=== PATIENT | male | born 1985 | race African-American/Black ===

== ENCOUNTER 2018-01-10 02:30 | Emergency (ER) | payer BC ==
[2018-01-10 02:45] VITALS: BP 117/70; PULSE 57; TEMP 98.8; BMI 24.4
[2018-01-10] MEDS ORDERED: ACETAMINOPHEN 500 MG TABLET (FP) PO ONE (02:49)
[2018-01-10] MEDS ORDERED: ACETAMINOPHEN 325 MG TABLET (FP) ONE (02:51)
--- NOTE | 2018-01-10 03:00 | PDOC ---
History of Present Illness - General Chief Complaint: Pain, Acute Stated Complaint: PAIN,RT LEG Time Seen by Provider: 01/10/18 02:37 History Source: Patient Exam Limitations: No Limitations - History of Present Illness Initial Comments: 01/10/18 02:55 32 yo male no significant pmh presents to the ED with sudden onset pain in the right knee. Pt states the pain started suddenly and woke him up out of sleep at 1 am. Does admit to playing basketball yesterday but denies any trauma or painful event. States he is unable to weight bare or bend his knee due to pain. Pt is with only 1 sexual partner for years and denies hx of STDs. Denies heavy consumption of red meat, alcohol and denies drug use. Admits to numbness but no weakness distal to the right knee. Denies recent illness, F/C/N/ V, CP, SOB or abdominal pain. Past History - Past Medical History Allergies/Adverse Reactions: Allergies Allergy/AdvReac Type Severity Reaction Status Date / Time No Known Allergies Allergy Verified 01/10/18 02:53 Home Medications: Ambulatory Orders NK [No Known Home Medication] 01/10/18 - Suicide/Smoking/Psychosocial Hx Smoking History: Never smoked Have you smoked in the past 12 months: No Information on smoking cessation initiated: No Hx Alcohol Use: No Drug/Substance Use Hx: No *Physical Exam - Vital Signs Last Vital Signs Temp Pulse Resp BP Pulse Ox 98.8 F 57 L 18 117/70 100 01/10/18 02:34 01/10/18 02:34 01/10/18 02:34 01/10/18 02:34 01/10/18 02:34 ED Treatment Course - RADIOLOGY Radiology Studies Ordered: Category Date Time Status KNEE 4 POS-RIGHT [RAD] Stat Radiology 01/10/18 02:48 Ordered - Medications Given in the ED: ED Medications Discontinued Medications Generic Name Dose Route Start Last Admin Trade Name Freq PRN Reason Stop Dose Admin Acetaminophen 1,000 mg 01/10/18 02:49 01/10/18 02:52 Tylenol - PO 01/10/18 02:50 1,000 mg ONCE ONE Administration Medical Decision Making - Medical Decision Making 01/10/18 04:25 32 yo male no significant pmh presents with sudden onset pain in the right knee after basketball game yesterday. Pain woke him up out of sleep DDX: Gout vs Septic joint (unlikely because no fevers, knee is not swollen) vs muscle strain 1000mg tylenol PO given and knee x ray ordered Patient states he is doing much better after the tylenol and is now able to bend the knee easily 01/10/18 05:02 X ray negative for fracture DC home with strict return precautions and RICE *DC/Admit/Observation/Transfer Diagnosis at time of Disposition: Knee pain, acute Qualifiers: Laterality: right Qualified Code(s): M25.561 - Pain in right knee - Discharge Dispostion Disposition: HOME Condition at time of disposition: Stable Decision to Admit order: No - Referrals Referrals: Nita Echeverria MD [Primary Care Provider] - - Patient Instructions Printed Discharge Instructions: DI for Acute Pain -- Adult Additional Instructions: Please return to the Emergency Room for new or worsening symptoms including but not limited to: high fevers, very painful, swollen and red knee. Please make appointment with your Family Doctor within the next 2 days. Please take extra strength Motrin over the counter every 4-6 hours for the next 3 days for the inflammation and pain. Also, rest, Ice and elevate the knee. Thank you - Post Discharge Activity Forms/Work/School Notes: Back to Work
[2018-01-10] MEDS ORDERED: IBUPROFEN 600 MG TABLET (FP) PO ONE ×2 (03:24→04:37)
--- NOTE | 2018-01-10 03:25 | PDOC ---
Attending Attestation - Resident Resident Name: LeroyElias - ED Attending Attestation I have performed the following: I have examined & evaluated the patient, The case was reviewed & discussed with the resident, I agree w/resident's findings & plan - HPI HPI: 01/10/18 03:40 Nigel 32 YOM with no medical history presenting with Acute onset right knee pain while sleeping. 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 No fever or chills. No knee swelling. ROM limited 2/2 pain. 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 - Physicial Exam PE: 01/10/18 03:42 General: NAD, well appearing Vascular: 2+ DP pulses symmetric and equal. Back: no midline tenderness, no stepoffs, FROM MSK: soft compartment. no calf tenderness. 5/5 plantar and dorsiflexion. SILT. no laxity at knee jt. 2+ DP pulses bilaterally. +diffuse tenderness over anterior and medial/posterior knee, ROM limited 2/2 pain. Neuro: 5/5 strength, against resistance, SILT grossly. Skin: color normal color, warm and well perfused. no warmth or swelling over b/ l knees. - Medical Decision Making 01/10/18 03:41 32 YOM with right knee pain. DDx. knee strain, ligamental injury; clinically doubt effusion, septic arthritis , gout or hemarthrosis as no clinical s/s to suggest so. no palp effusion to tap. Vital signs reviewed, wnl. XR right knee grossly normal, no acute fx or chips, normal alignment and joint space, no subluxation, no patella fx. no gross effusion ED course: no acute events, remained stable and well appearing. Clinically improved after interventions, including analgesia (motrin/tylenol). Improvement in ROM, no neuro deficits. crutches and hellen wrap for comfort, light activity and wbat, rest ice and elevate. limit strenous activity and prolonged jumping activities such as basketball until feeling improved. Dispo: Pt to be discharged in stable condition. Patient and family made aware of impression and plan, return precautions discussed (including but not limited to worsening pain or symptoms), fevers, or signs of infection, chest pain, respiratory distress, inability to tolerate oral intake, dehydration, syncope, or neurologic changes). Follow up with PMD and/or specialist as recommended, follow up information provided, take medications as instructed for duration of time. continue with supportive care, avoid triggers and precipitants. All questions answered to patient's satisfaction and expressed understanding and comfort with this. ortho f/u provided, Dr. Hughes/Og. 01/10/18 03:44 01/10/18 04:59 01/10/18 05:00
== END 2018-01-10 05:26 | disposition home or self-care (01) ==
LOC: JER 02:30
DX: M25.561 Pain in right knee (principal); X58.XXXA Exposure to other specified factors, initial encounter; Y93.67 Activity, basketball; Y92.310 Basketball court as the place of occurrence of the external cause; Y99.8 Other external cause status
CPT/HCPCS: 73562-TC-RT-FY; 99282-25